=== PATIENT | male | born 1980 ===

== ENCOUNTER 2019-09-24 07:48 | Day surgery (SDC) | payer BC ==
[~2019-09-24 07:48] MED LIST: Sodium Chloride 0.9% 10 ML Syringe FLUSH PRN
[2019-09-24] MEDS: Lactated Ringers 1,000 ML IV SCH (08:31)
[2019-09-24] MEDS ORDERED: Propofol 200 MG/20 ML SDV ONE (08:44)
[2019-09-24] MEDS ORDERED: Midazolam 1 MG/ML 2 ML SDV ONE (08:44)
== END 2019-09-24 09:45 | disposition home or self-care (01) ==
LOC: LL.SDS 07:48
PROVIDERS: ATTEND Surgery
DX: K92.1 Melena (principal); R10.30 Lower abdominal pain, unspecified; Z53.9 Procedure and treatment not carried out, unspecified reason
CPT/HCPCS: J7120

== ENCOUNTER 2019-10-08 07:07 | Day surgery (SDC) | payer BC ==
[2019-10-08] MEDS ORDERED: Sodium Chloride 0.9% 10 ML Syringe FLUSH PRN (07:45)
[2019-10-08] MEDS: Lactated Ringers 1,000 ML IV SCH (08:38)
[2019-10-08] MEDS ORDERED: Midazolam 1 MG/ML 2 ML SDV ONE ×2 (08:52→09:39)
[2019-10-08] MEDS ORDERED: Propofol 200 MG/20 ML SDV ONE ×2 (08:52→09:39)
--- NOTE | 2019-10-08 09:38 | PCM.HPR ---
H & P Addendum review - H & P Addendum Review Date of Original H & P: 09/10/19 Date Reviewed: 10/08/19 Time Reviewed: 09:30 Patient was Examined: No Changes
--- NOTE | 2019-10-08 09:59 | PCM.OPNOTE ---
- General Post-Op/Procedure Note Date of Surgery/Procedure: 10/08/19 Operative Procedure(s): Colonoscopy Findings: Normal Pre Op Diagnosis: Hematochezia, abd pain Post-Op Diagnosis: Same Anesthesia Technique: ADDY Primary Surgeon: Nabeel Harrison Anesthesia Provider: Rosemary Jett Complications: None Condition: Good
--- NOTE | 2019-10-08 15:02 | OR ---
Date of Procedure: 10/08/2019 PREOPERATIVE DIAGNOSES: 1. Hematochezia. 2. Abdominal pain. POSTOPERATIVE DIAGNOSIS: Normal colonoscopy. PROCEDURE: Colonoscopy. ANESTHESIA: IV sedation. PROCEDURE IN DETAILS: Patient was brought to the procedure room where he was placed on his left side and IV sedation administered. Digital rectal exam was performed, which was normal. Colonoscope was inserted and advanced to the level of the cecum without difficulty. Cecal position was confirmed by identifying the appendiceal lumen and ileocecal valve. Prep was good and surfaces were well visualized. Upon withdrawing the scope, the ascending, transverse, and descending colon were normal in appearance. Sigmoid colon and rectum were normal. Retroflexion was normal. No enlarged hemorrhoids, diverticulosis, colitis, or other abnormalities were noted that would account for his pain or recent bleeding. PLAN: I will have him follow up with Eleanor Tsai PA-C. as necessary. He should consider routine colon screening again at age 50. YARITZA MORELOS MD /[id number]
== END 2019-10-08 10:54 | disposition home or self-care (01) ==
LOC: LL.SDS 07:07
PROVIDERS: ATTEND Surgery
DX: K92.1 Melena (principal); R10.32 Left lower quadrant pain; R10.31 Right lower quadrant pain; R10.33 Periumbilical pain
CPT/HCPCS: 45378; J2250; J2704; J7120